=== PATIENT | male | born 1955 | race Caucasian/White ===

== ENCOUNTER 2021-02-10 15:36 | Outpatient (REF) | payer MEDICARE, SELFPAY | END 2021-02-10 15:37 | disposition home or self-care (01) | LOC: HO.MANLDS 15:36 | PROVIDERS: PCP Physician Assistant; Visit Provider Physician Assistant | DX: R30.0 Dysuria (principal) | CPT/HCPCS: 87086; 87088; 87186 ==

== ENCOUNTER 2024-05-18 09:11 | Outpatient (REF) | payer MEDICARE, SELFPAY ==
--- OUTSIDE RECORDS SUMMARY | 2024-05-18 09:41 | XMS_ITS | Continuity of Care Document ---
Author Organization [facility], [facility] Address [address] [place] [address] Assessment No assessment recorded. Plan of Treatment Reminders Order Date Submit Date Provider Last Modified By Organization Details Last Modified Time Details Appointments None recorded. Lab PSA, serum or plasma 2024 [facility], [address] [place] [address], [id number], 10:17:49 urinalysis complete, reflex culture 2024 [facility], [address] [place] [address], [id number], 10:17:49 CMP, serum or plasma 2024 [facility], [address] [place] [address], [id number], 10:17:49 hemoglobin A1c, QN, blood 2024 [facility], [address] [place] [address], [id number], 10:17:49 CBC w/ auto diff 2024 [facility], [address] [place] [address], [id number], 10:17:49 Referral None recorded. Procedures None recorded. Surgeries None recorded. Imaging None recorded. Medication Orders None recorded. Patient TargetsNo targets recorded. Patient InstructionsNo instructions recorded. Reason for Referral None Reported. Problems Name Problem SNOMED Code Status Onset Date Resolution Date Notes Provider Name and Address Organization Details Recorded Time Cervical arthritis 623292438 Active 2019 Not Available [facility] 1 11:26:52 Sleep apnea 60394971 Active 2020 Not Available [facility] 1 11:26:52 Herpes zoster 5431703 Active 2022 BHARAT CALABRESE [address] [place] [address], [phone], [facility] 3 14:57:57 Generaliz ed rash 699655360 Active 2022 BHARAT CALABRESE [address] [place] [address], [phone], [facility] 3 12:18:00 Allergic reaction 773169599 Active 2022 BHARAT CALABRESE [address] [place] [address], [address], [facility] 3 12:18:07 Pain of right shoulder joint 388358504570 33762 Active 2023 BHARAT CALABRESE [address] [place] [address], [address], [facility] 4 09:43:30 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 Procedures Surgical History Date Name Laterality Status Provider Name and Address Organization Details Recorded Time Elbow arthroscopy/surg estela completed BHARAT CALABRESE [address] [place], [address], [facility] 06/30/2019 10:21:46 anal fissurectomy completed BHARAT CALABRESE [address] [place], [address], [facility] 06/30/2019 10:21:57 Appendectomy completed BHARAT CALABRESE [address] [place], [address], [facility] 06/30/2019 10:22:15 Imaging Results None recorded. Procedure Notes None recorded. Medical Equipment None Reported. Allergies No known drug allergies Medications Name Sig Start Date Stop Date Status Note LastModified by Organization Details LastModified Time latanoprost 0.005 % eye drops INSTILL 1 DROP IN BOTH EYES DAILY AT BEDTIME active Not Available Not Available No t Available valacyclovi r 1 gram tablet TAKE 1 TABLET BY MOUTH EVERY 8 HOURS FOR 7 DAYS DIRECTED 07/14 completed Not Available Not Available Not Available prednisone 20 mg tablet TAKE 1 TABLET BY MOUTH EVERY DAY FOR 7 DAYS 01/28 completed Not Available Not Available Not Available sulfamethox azole 800 mg-trimetho prim 160 mg tablet TAKE 1 TABLET BY MOUTH EVERY 12 HOURS WITH MEALS FOR 7 DAYS 01/28 completed Not Available Not Available Not Available tramadol 50 mg tablet TAKE 1 TABLET BY MOUTH EVERY 6 HOURS FOR 7 DAYS DIRECTED 01/28 completed Not Available Not Available Not Available ketorolac 0.5 % eye drops INSTILL 1 DROP INTO RIGHT EYE THREE TIMES DAILY FOR 3 WEEKS FOLLOWING SURGERY ON 05/30 active Not Available Not Available No t Available brimonidine 0.2 % eye drops INSTILL 1 DROP IN BOTH EYES TWICE DAILY active Not Available Not Available No t Available gabapentin 300 mg capsule TAKE 1 CAPSULE BY MOUTH THREE TIMES DAILY FOR 14 DAYS 07/14 completed Not Available Not Available Not Available Shingrix (PF) 50 mcg/0.5 mL intramuscul ar suspension, kit ADMINISTE R 0.5ML IN THE MUSCLE DIRECTED 02/10 completed Not Available Not Available Not Available Fluad Quad 5682-6431(6 5yr up)(PF) 60 mcg (15 mcg x 4)/0.5mL IM syringe ADM 0.5ML IM UTD 02/10 completed Not Available Not Available Not Available Vitals Date Recorded Body height Body mass index (BMI) Body weight Heart rate Oxygen saturation Oxygen saturation in Arterial blood by Pulse oximetry Systolic blood pressure Diastolic blood pressure Provider Name and Address Organization Details Last Updated DateTime 5 193.04 cm 31.6 kg/m2 922470. 02 g 90 /min 95 % 95 % 132 mm[Hg] 80 mm[Hg] Shruthi Alvarado [facility] 5 09:42:58 Social History Question Answer Notes LastModified by Organizat ion Details LastModified Time Tobacco Smoking Status Never Smoker Amanda Solizanastasiia heck [facility] 06/30/2019 10:09:31 What Was The Date Of Your Most Recent Tobacco Screening? 05/11/2024 [email or web address] Information not available 05/11/2024 Sex: Unknown Functional Status None recorded. Mental Status None recorded. Family History Relationship Description Onset Age of this Age Resolved Age Notes LastModified by Organization Details LastModified Time Father No current problems or disability [email or web address] Not available 06/29 10:17:21 Mother No current problems or disability [email or web address] Not available 06/29 10:17:21 Medical History No medical history recorded. Immunizations Vaccine Type Date Status Note Provider Nam e and Address Organization Details Recorded Time Influenza, split virus, quadrivalent, preservative 1 completed Barbara heck [facility] 12/20/2020 13:55:51 Tdap 1 completed [facility] 08/03/2020 11:27:54 Past Encounters Encounter ID Performer Location Encounter Start Date Encounter Closed Date Diagnosis/Indication Diagnosis SNOMED-CT Code Diagnosis ICD10 Code Diagnosis Note [id number] BHARAT CALABRESE [facility] [address] [address] 05/11/2024 09:33:51 05/11/2024 10:47:20 Depression screening 806199495 Z13.31 negative Degenerati ve joint disease of hand 95000813 M19.042 will monitor for now Nocturia d ue to benign prostatic hypertrophy 2400430346 101 N40.1 will set up with blood work and prostate screening Health Concerns Section Related Observation LastModified by Organization Detai ls LastModified Time None Recorded Concern Status LastModified by Organization Details LastModified Time None Recorded Payers Encounter Date Sequence Insurance Name Policy Number Policy Mireles Covered Member ID Mireles Member ID Guarantor Name 05/11/2024 1 [facility] - MEDICARE PREFERRED (MEDICARE REPLACEMENT HMO) KATHLEEN Enciso [id number] 1 Rafael Enciso Notes Date Note Type Note Provider Name a nd Address Organization Details Recorded Time 05/11/2024 text/html c/o hand pain/le ft pointer finger pain left hand pain: the patient reports left hand finger pain, noted he expressed it he got out some clear fluidhas been ongoing for the past few years, looks like arthritis and probable ganglion cystthe patient reports Herbenden nodulesthe patient and I discussed this, is aware of what to look fordeclines hand spec referral at thispatient will monitor this for now nocturia: about 4 to 5 times per nightdenies blood in the urine, no foamdoesn't empty completelythe patient reports he hasn't had lab workdenies pain need to check prostate healthand urine BHARAT CALABRESE [address], [place], [address], [place] [facility] 05/11/2024 10:18:38
--- OUTSIDE RECORDS SUMMARY | 2024-05-18 09:41 | XMS_ITS | Data Portability ---
Author Organization [facility], Home Service Address [address] [place] [address] Assessment No assessment recorded. Plan of Treatment Reminders Order Date Submit Date Provider Last Modified By Organization Details Last Modified Time Details Appointments None recorded. Lab urinalysis , dipstick 2020 [email or web address] [facility], [address], [place], [address], 14:24:39 culture, urine + sensitivit y 2020 021 [facility], [address] [place] [address], [address], 11:56:56 PSA, serum or plasma 2024 025 [facility], [address] [place] [address], [address], 5 10:17:49 urinalysis complete, reflex culture 2024 025 [facility], [address] [place] [address], [address], 5 10:17:49 CMP, serum or plasma 2024 025 [facility], [address] [place] [address], [address], 5 10:17:49 hemoglobin A1c, QN, blood 2024 025 [facility], [address], [place], [address], 5 10:17:49 CBC w/ auto diff 2024 025 [facility], [address], [place], [address], 5 10:17:49 Referral None recorded. Procedures None recorded. Surgeries None recorded. Imaging XR, shoulder, 2 or more view 2023 024 [facility], [address] [place], [address], 4 16:10:25 Medication Orders Bactrim DS 800 mg-160 mg tablet 2020 021 [id number], [address] [place], [place], [id number], 3 12:05:26 Patient TargetsNo targets recorded. Patient InstructionsNo instructions recorded. Reason for Referral None Reported. Results Created Date Observation Date Name Description Value Unit Range Abnormal Flag Note LastModifiedBy Organization Detail LastModifiedTime 02/11/2002/10/2021 urina lysis , dipst ick Leukocytes Modera te Not Available [facility] [address], [place], [address], 02/10/2021 14:21:04 02/11/20 21 02/10/2021 urina lysis , dipst ick Nitrite positi ve Not Available [facility] [address], [place], [address], 02/10/2021 14:21:04 02/11/20 21 02/10/2021 urina lysis , dipst ick Urobilinogen .2 Not Available [facility] [address], [place], [address], 02/10/2021 14:21:04 02/11/20 21 02/10/2021 urina lysis , dipst ick Protein Negati ve Not Available [facility] [address], [place], [address], 02/10/2021 14:21:04 02/11/20 21 02/10/2021 urina lysis , dipst ick pH 5.5 Not Available [facility] [address], [place], [address], 02/10/2021 14:21:04 02/11/20 21 02/10/2021 urina lysis , dipst ick Blood Negati ve Not Available [facility] [address], [place], [address], 02/10/2021 14:21:04 02/11/20 21 02/10/2021 urina lysis , dipst ick Specific Glasgow 1.025 Not Available [facility] [address], [place], [address], 02/10/2021 14:21:04 02/11/2002/10/2021 urina lysis , dipst ick Ketone Negati ve Not Available [facility] [address], [place], [address], 02/10/2021 14:21:04 02/11/20 21 02/10/2021 urina lysis , dipst ick Bilirubin Negati ve Not Available [facility] [address], [place], [address], 02/10/2021 14:21:04 02/11/20 21 02/10/2021 urina lysis , dipst ick Glucose Negati ve Not Available [facility] [address], [place], [address], 02/10/2021 14:21:04 02/11/20 21 02/10/2021 urina lysis , dipst ick Appearance Slight ly Cloudy Not Available [facility] [address], [place], [address], 02/10/2021 14:21:04 02/11/20 21 02/10/2021 urina lysis , dipst ick Color Yellow Not Available [facility] [address], [place], [address], 02/10/2021 14:21:04 07/15/19 24 07/15/2023 XR, shoul raheel, 2 or more view No observ ation record ed. [email or web address] [facility] [address], [place], [address], 07/16/2023 09:41:00 Result Notes None recorded. Problems Name Problem SNOMED Code Status Onset Date Resolution Date Notes Provider Name and Address Organization Details Recorded Time Cervical arthritis 193086802 Active 2019 Not Available [facility] 11:26:52 Sleep apnea 80843044 Active 2020 Not Available [facility] 11:26:52 Herpes zoster 7808659 Active 2022 BHARAT CALABRESE [address] [place] [address], [address], [facility] 3 14:57:57 Generaliz ed rash 531528349 Active 2022 BHARAT CALABRESE [address] [place] [address], [address], [facility] 3 12:18:00 Allergic reaction 491510520 Active 2022 BHARAT CALABRESE [address] [place] [address], [address], [facility] 3 12:18:07 Pain of right shoulder joint 295440315341 81675 Active 2023 BHARAT CALABRESE [address] [place] [address], [address], [facility] 4 09:43:30 Degenerat wendie joint disease of hand 08912683 Active 2024 BHARAT CALABRESE [address] [place], [address], [facility] 5 10:08:59 Degenerat wendie joint disease of hand 83893528 Active 2024 BHARAT CALABRESE [address] [place], [address], [facility] 5 10:09:09 Nocturia due to benign prostatic hypertrop 089428442144 1 Active 2024 BHARAT CALABRESE [address] [place], [address], [facility] 5 10:13:14 Problem Notes None recorded. Procedures Surgical History Date Name Laterality Status Provider Name and Address Organization Details Recorded Time Elbow arthroscopy/surg estela completed BHARAT CALABRESE [address] [place] [address], [address], [facility] 06/30/2019 10:21:46 anal fissurectomy completed BHARAT CALABRESE [address] [place] [address], [address], [facility] 06/30/2019 10:21:57 Appendectomy completed BHARAT CALABRESE [address] [place] [address], [address], [facility] 06/30/2019 10:22:15 Imaging Results Imaging Date Name Status LastModified by Organiz ation Details LastModified Time 07/15/2023 XR, shoulder, 2 or more view completed [facility] [address] [place] [address] [address], [place], [address], 07/16/2023 09:41:00 Procedure Notes None recorded. Medical Equipment None [...] Available Not Available Not Available Fluad Quad 8388-2270(6 5yr up)(PF) 60 mcg (15 mcg x 4)/0.5mL IM syringe ADM 0.5ML IM UTD 02/10 completed Not Available Not Available Not Available Vitals Date Recorded Body height Body mass index (BMI) Body weight Body temperature Heart rate Oxygen saturation Oxygen saturation in Arterial blood by Pulse oximetry Systolic blood pressure Diastolic blood pressure Provider Name and Address Organization Details Last Updated DateTime 1 193.04 cm 30.1 kg/m2 940818. 47 g 97.1 [degF] 72 /min 97 % 97 % 120 mm[Hg] 80 mm[Hg] [facility] 1 14:21:47 Date Recorded Body height Oxygen saturation Oxygen saturation in Arterial blood by Pulse oximetry Heart rate Systolic blood pressure Diastolic blood pressure Provider Name and Address Organization Details Last Updated DateTime 1 193.04 cm 98 % 98 % 71 /min 128 mm[Hg] 70 mm[Hg] Kirsten Aguilar [facility] 1 14:21:48 Date Recorded Body height Body mass index (BMI) Body weight Heart rate Oxygen saturation Oxygen saturation in Arterial blood by Pulse oximetry Systolic blood pressure Diastolic blood pressure Provider Name and Address Organization Details Last Updated DateTime 3 193.04 cm 31.7 kg/m2 839961. 09 g 80 /min 95 % 95 % 122 mm[Hg] 66 mm[Hg] BHARAT CALABRESE [address] [place], [address], [facility] 3 12:03:43 Date Recorded Body height Body mass index (BMI) Body weight Heart rate Oxygen saturation Oxygen saturation in Arterial blood by Pulse oximetry Systolic blood pressure Diastolic blood pressure Provider Name and Address Organization Details Last Updated DateTime 4 193.04 cm 31.5 kg/m2 739206. 99 g 85 /min 98 % 98 % 128 mm[Hg] 80 mm[Hg] Hussein Burrell [facility] 4 09:30:54 Date Recorded Body height Body mass index (BMI) Body weight Heart rate Oxygen saturation Oxygen saturation in Arterial blood by Pulse oximetry Systolic blood pressure Diastolic blood pressure Provider Name and Address Organization Details Last Updated DateTime 5 193.04 cm 31.6 kg/m2 053644. 02 g 90 /min 95 % 95 % 132 mm[Hg] 80 mm[Hg] Shruthi Alvarado [facility] 5 09:42:58 Social History Question Answer Notes LastModified by Organizat ion Details LastModified Time Tobacco Smoking Status Never Smoker Amanda heck [facility] 06/30/2019 10:09:31 What Was [...] Immunizations Vaccine Type Date Status Note Provider Zhang e and Address Organization Details Recorded Time Influenza, split virus, quadrivalent, preservative [address] [facility] 12/20/2020 13:55:51 Tdap [address] [facility] 08/03/2020 11:27:54 Past Encounters Encounter ID Performer Location Encounter Start Date Encounter Closed Date Diagnosis/Indication Diagnosis SNOMED-CT Code Diagnosis ICD10 Code Diagnosis Note [id number] BHARAT CALABRESE [facility] [address] [facility] [address] 06/30/2019 09:59:05 06/30/2019 12:05:38 Patient new to provider [id number] 67850 Z76.89 Pt is healthy with no pmh and no medication s he has no concerns today we went over his hx and discussed plans for future physical and what we will do then I will give him lab work slips to have done before next physical f/u in the summer for annual physical pt requested chiropract ic referral due to insurance needing one to been seen Active or passive immunization 224623078 Z23 Pt and I discussed immunizati on hx We revisit this topic at his annual physical as patient would like to avoid vaccinatio ns at this time given the current pandemic Cervical arthritis 37519 1000 M46.92 pt has a hx of cervical arthrosis sees a chiropract or to help with symptom management [id number] BHARAT CALABRESE [facility] [address] [facility] [address] 12/15/2019 10:32:41 12/15/2019 12:05:55 Adult health examination 230113871 Z00.00 lab work up to date BP looks good otherwise healthy Acute urin zaheer tract infection 636434615 N39.0 found to have UTI on dip patient also states he has been having increased frequency and some discomfort urinating but was ignoring it will treat and send for culture [id number] BHARAT CALABRESE [facility] [address] [facility] [address],[place] [address] 05/18/2020 14:14:55 05/18/2020 14:58:14 Pre-surgery evaluation 133979918 Z01.818 patient blood pressure at office was 120/80, well controlled without use of medication patient does have a hx of sleep apnea for which he uses a CPAP no other signficant health conditions which would preclude him from surgery at this time based on physical and history the patient is cleared for surgery [id number] BHARAT CALABRESE [facility] [address] [facility] [address] 02/10/2021 14:15:00 02/10/2021 16:15:07 Dysuria 68276497 R30.0 given abx for positive dipstick UTI [id number] BHARAT CALABRESE [facility] [address] [place] [address],[place] [address] 01/28/2023 11:58:20 01/28/2023 12:34:59 Cervical arthritis 208159507 M46.82 stable Allergic reaction 697804 005 T78.40XD agreed to just continue the antihistam ine every daywill set up benadryl Generalized rash 5424187 06 R21 will monitor [id number] BHARAT CALABRESE [facility] [address] [place] [address],[place] [address] 07/15/2023 09:23:33 07/15/2023 11:53:02 Pain of right shoulder joint 2198274030 9132327 M25.511 will set up wtih XRwill need MRIsuprasp inatus/inf raspinatus + biceps [id number] BHARAT CALABRESE [facility] [address] [facility] [address],[place] [address] 05/11/2024 09:33:51 05/11/2024 10:47:20 Depression screening 534028789 Z13.31 negative Degenerati ve joint disease of hand 81849400 M19.042 will monitor for now Nocturia d ue to benign prostatic hypertrophy 6474112938 101 N40.1 will set up with blood work and prostate screening Health Concerns Section Related Observation LastModified by Organization Detai ls LastModified Time None Recorded Concern Status LastModified by Organization Details LastModified Time None Recorded Advance Directives Directive None Recorded Payers Encounter Date Sequence Insurance Name Policy Number Policy Mireles Covered Member ID Mireles Member ID Guarantor Name 05/18/2020 1 [facility] [employer] [id number] 1 Rafael Enciso 02/10/2021 1 [facility] [employer] [id number] 1 Rafael Enciso 01/28/2023 1 [facility] [employer] [id number] 1 Rafael Enciso 07/15/2023 1 [facility] [employer] [id number] 1 Rafael Enciso 05/11/2024 1 [facility] - MEDICARE PREFERRED (MEDICARE REPLACEMENT HMO) KATHLEEN Enciso [id number] 1 Rafael Enciso Notes Date Note Type Note Provider Name a sc Address Organization Details Recorded Time 1 text/html Pre-OpReported bypatient.Surgery to be Performed:right eye cataract Dr. Resendiz Risk Factorsno cognitive impairment; no functional impairment; no malnutrition; no frailty; able to climb a flight of stairs (exercise capacity>4 METS); non-smoker; no alcohol misuse; no illicit drug use; no chronic cardiopulmonary condition; not obese;obstructive sleep apnea(uses CPAP) Anesthesia hx:no hx of anesthesia complications; no allergy to anesthetic agents; no family history of anesthesia complications Functional Ability:able to walk up stairs; able to perform heavy work around the house; no difficulty walking up hills; able to walk 4 mph Post-Op Support:adequate assistance at home () BHARAT CALABRESE [address] [place] [address], [address], [facility] 05/18/2020 14:50:29 1 text/html c/o UTI symptoms the pt reports symptoms since morningthe pt reports burning, frequency and difficulty voidingfeelings of incomplete voiding no blood in the urine, no foam or foul odor the patient has a UTI currently as well BHARAT CALABRESE [address] [place], [address], [facility] 02/10/2021 14:39:57 3 text/html c/o rash the patient has had an intermittent itchy rash, all over his bodythe patient rash is maculopapular, salmon coloredthe patient does not notice any bite gray no new products in the houseno new petsno new foods the patient does think it could be related to outdoor allergens or bug bites no specific correlation declined gas analyst referral Tammie, zyrtec, claritinor a benadryl at night could just have worsened seasonal allergies BHARAT CALABRESE [address] [place], [address], [facility] 01/28/2023 12:20:10 4 text/html c/o shoulder pain R The patient reports R shoulder painThe pain started in June, had lumbar rad and was pushing himself up out of bed and with chairThe pain is characterized by acheOn a scale of 1 to 10 the patient reports a 7 at worse and 5 at bestThe patient is R hand dominant Endorses weakness, radiation, reduced ROM, painThe pain is worsened by extension away from the body, pain with overhead motionThe pain is alleviated by icey-hot patch The patient denies trauma or injuryThe patient reports hx repetitive activities with lifting himself up ROM compared to unaffected shoulder is less so than the left, noted about half the strength of his L arm Pertinent comorbidities include hx of left shoulder surgery BHARAT CALABRESE [address] [place], [address], [facility] 07/15/2023 09:47:16 5 text/html c/o hand pain/left pointer finger pain left hand pain: the [...] to check prostate healthand urine BHARAT CALABRESE [address] [place] [address], [address], [facility] 05/11/2024 10:18:38
[2024-05-18 13:18] LABS: MANUAL DIFF FLAG NO
[2024-05-18 13:23] LABS: Appearance Urine Clear; Color Urine Yellow; Glucose Urine UA Negative (Negative); Leukocyte Esterase Urine Small (1+) (Negative); Nitrite Urine Positive (Negative); PH 5.5 (5.0-9.0); UMIC TRIGGER UA YES; Urine Blood Negative (Negative); Urine Ketones Negative (Negative); Urine Protein Negative (Neg-Trace)
[2024-05-18 13:25] LABS: Basophils Percent Auto 0.4 % (0-2); Hematocrit 42.1 % (42.0-52.0); Hemoglobin 13.8 g/dl (14.0-18.0); Imm Gran Abs Auto 0.01 X10*3/uL (0.00-0.03); Imm Gran Pct Auto 0.2 % (0.0-0.4); Lymphocytes Absolute Auto 1.6 X10*3/uL (1.2-4.9); Lymphocytes Percent Auto 31.5 % (20-40); Mean Corpuscular HGB Conc 32.8 g/dl (31.0-36.0); Mean Corpuscular Hemoglobin 28.7 pg (27.0-33.0); Mean Corpuscular Volume 87.5 fL (80.0-98.0); Mean Platelet Volume 10.6 fL (9.4-12.4); Monocytes Absolute Auto 0.5 X10*3/uL (0.1-1.2); Neutrophils Percent Auto 58.9 % (45-73); Platelet Count 235 X10*3/uL (160-400); Red Blood Count 4.81 X10*6/uL (4.60-5.80); Red Cell Distribution Width 13.5 % (11.0-16.0); White Blood Count 5.1 X10*3/uL (4.8-10.8)
[2024-05-18 13:29] LABS: Bacteria Urine 4+ (None Seen); RBC Urine 0-2 /HPF (0-2); Squamous Epithelial Cell Urine 0-2 /HPF (0-2); WBC Urine 21-50 /HPF (0-5)
[2024-05-18 13:39] LABS: Estimated Average Glucose 123 mg/dL; Hemoglobin A1C 147.0398 umol/L; Hemoglobin A1c % 5.9 % (<6.0); Total Hemoglobin (HGBA1C) 3548.0624 umol/L
[2024-05-18 13:40] LABS: Alanine Aminotransferase 26 U/L (0-40); Albumin Level 4.3 g/dL (3.5-5.0); Alkaline Phosphatase 64 U/L (39-117); Anion Gap 12 (12-20); Aspartate Amino Transferase 26 U/L (5-37); Bilirubin Total 0.4 mg/dL (0.0-1.0); Blood Urea Nitrogen 19 mg/dL (9-16); Calcium 8.7 mg/dL (8.4-10.2); Carbon Dioxide 25 mmol/L (22-29); Chloride 107 mmol/L (96-108); Estimated Glomerular Filt Rate > 60; Glucose Random 96 mg/dL (60-115); Potassium 4.3 mmol/L (3.3-5.1); Sodium 140 mmol/L (135-145); Total Protein 7.6 g/dL (6.5-8.0)
[2024-05-18 13:52] LABS: Prostate Specific Antigen 2.45 ng/mL (<0.05-4.0)
== END 2024-05-18 09:12 | disposition home or self-care (01) ==
LOC: HO.MANLDS 09:11
PROVIDERS: Visit Provider Internal Medicine
DX: Z12.5 Encounter for screening for malignant neoplasm of prostate (principal); Z13.1 Encounter for screening for diabetes mellitus; N40.1 Benign prostatic hyperplasia with lower urinary tract symptoms
CPT/HCPCS: 36415; 80053; 81001; 83036; 84153; 85025